=== PATIENT | female | born 1990 | race Caucasian/White ===

== ENCOUNTER 2023-01-10 22:53 | Observation (INO) | payer BC ==
[2023-01-11 00:13] LABS: BASO % 0.9 % (0-2.0); EOS % 1.9 % (0-4.5); HEMATOCRIT 38.8 % (32.4-45.2); HEMOGLOBIN 12.9 GM/dL (10.7-15.3); LYMPH % 10.1 % (8-40); MCHC 33.3 g/dl (32.0-36.0); MEAN PLT VOLUME 9.2 fl (7.5-11.1); MONO % 7.7 % (3.8-10.2); NEUT % 79.4 % (42.8-82.8); PLATELET COUNT 239 10^3/uL (134-434); RBC 4.31 M/mm3 (3.60-5.2); RDW 13.7 % (11.6-15.6); WHITE BLOOD COUNT 9.2 K/mm3 (4.0-10.0)
[2023-01-11 00:32] LABS: POTASSIUM 4.3 mmol/L (3.5-5.1)
[2023-01-11 00:34] LABS: ALBUMIN 3.6 g/dl (3.4-5.0); CALCIUM 8.7 mg/dL (8.5-10.1)
[2023-01-11 00:35] LABS: BLOOD UREA NITROGEN 19.4 mg/dL (7-18)
[2023-01-11 00:39] LABS: BILIRUBIN,TOTAL 0.2 mg/dL (0.2-1); TOT PROT 6.8 g/dl (6.4-8.2)
[2023-01-11 00:44] LABS: HCG,QUALITATIVE URINE Negative
[2023-01-11 00:45] LABS: EPI CELLS >36 /uL (0-25.1); HYALINE CASTS 1 /uL (0-3.1); URINE APPEARANCE CLEAR; URINE BACTERIA 54 /uL (0-1359); URINE BILIRUBIN NEGATIVE (NEGATIVE); URINE COLOR YELLOW; URINE GLUCOSE (UA) NEGATIVE (NEGATIVE); URINE KETONE TRACE (NEGATIVE); URINE LEUK ESTERASE NEGATIVE (NEGATIVE); URINE NITRITE NEGATIVE (NEGATIVE); URINE PROTEIN 1+ (NEGATIVE); URINE UROBILINOGEN 0.2 mg/dL (0.2-1.0); URINE WBC 23 /uL (0-25.8)
[2023-01-11 01:13] LABS: MAGNESIUM 1.9 mg/dL (1.8-2.4)
[2023-01-11 01:40] LABS: PHOSPHOROUS 2.7 mg/dL (2.5-4.9)
[2023-01-11] MEDS ORDERED: ASPIRIN 81 MG CHEWABLE TABLETS PO ONE (02:16)
[2023-01-11] MEDS ORDERED: ASPIRIN 81 MG CHEWABLE TABLETS ONE (02:21)
[2023-01-11 02:40] LABS: METHADONE, UR NEGATIVE (NEGATIVE)
[2023-01-11 02:41] LABS: PHENCYCLIDINE,URINE NEGATIVE (NEGATIVE); URINE BARBITURATES NEGATIVE (NEGATIVE); URINE BENZODIAZEPINES NEGATIVE (NEGATIVE)
[2023-01-11 02:44] LABS: COCAINE, UR NEGATIVE (NEGATIVE); OPIATES, URI NEGATIVE (NEGATIVE); URINE AMPHETAMINES NEGATIVE (NEGATIVE)
[2023-01-11 08:01] LABS: URINE CRYSTALS FEW /hpf
[2023-01-11] MEDS ORDERED: LORazepam 2 MG/ML SDV VIAL IVPUSH PRN (08:30)
[2023-01-11] MEDS ORDERED: ENOXAPARIN NA (PORCINE) 40 MG/0.4 ML DISP.SYRIN SQ ONE (08:41)
[2023-01-11 08:44] LABS: CHOLESTEROL 116 mg/dL (50-200)
[2023-01-11 08:46] LABS: LDL CHOLESTEROL (ONLY SJRH) 55 mg/dL (5-100)
[2023-01-11 08:47] LABS: HDL CHOLESTEROL 54 mg/dL (40-60)
[2023-01-11] MEDS: ASPIRIN 81 MG CHEWABLE TABLETS PO SCH (10:00)
[2023-01-11] MEDS: ENOXAPARIN NA (PORCINE) 40 MG/0.4 ML DISP.SYRIN SQ SCH (10:05)
[2023-01-11 10:55] LABS: BASO % 0.9 % (0-2.0); EOS % 2.5 % (0-4.5); HEMATOCRIT 37.2 % (32.4-45.2); HEMOGLOBIN 12.4 GM/dL (10.7-15.3); LYMPH % 16.5 % (8-40); MCH 29.9 pg (25.7-33.7); MCHC 33.3 g/dl (32.0-36.0); MEAN CELL VOLUME 89.6 fl (80-96); MEAN PLT VOLUME 10.3 fl (7.5-11.1); MONO % 8.2 % (3.8-10.2); NEUT % 71.9 % (42.8-82.8); PLATELET COUNT 234 10^3/uL (134-434); RBC 4.15 M/mm3 (3.60-5.2); RDW 13.5 % (11.6-15.6); WHITE BLOOD COUNT 8.3 K/mm3 (4.0-10.0)
[2023-01-11 12:08] LABS: CHLORIDE 110 mmol/L (98-107); POTASSIUM 4.2 mmol/L (3.5-5.1); SODIUM 143 mmol/L (136-145)
[2023-01-11 12:11] LABS: ALBUMIN 3.4 g/dl (3.4-5.0); ANION GAP 6 MMOL/L (8-16); BLOOD UREA NITROGEN 19.6 mg/dL (7-18); CALCIUM 8.2 mg/dL (8.5-10.1); CO2 27 mmol/L (21-32); MAGNESIUM 1.9 mg/dL (1.8-2.4)
[2023-01-11 12:12] LABS: GLUCOSE,RANDOM 92 mg/dL (74-106)
[2023-01-11 12:14] LABS: SGPT/ALT 16 U/L (13-61)
[2023-01-11 12:15] LABS: CREATININE 0.7 mg/dL (0.55-1.3); SGOT/AST 12 U/L (15-37)
[2023-01-11 12:16] LABS: BILIRUBIN,TOTAL < 0.1 mg/dL (0.2-1); TOT PROT 6.4 g/dl (6.4-8.2)
[2023-01-11 12:17] LABS: ALK PHOS 48 U/L (45-117)
[2023-01-12 05:54] VITALS: RESP 18
[2023-01-12] MEDS: ASPIRIN 81 MG CHEWABLE TABLETS PO SCH (10:30)
[2023-01-12] MEDS: ENOXAPARIN NA (PORCINE) 40 MG/0.4 ML DISP.SYRIN SQ SCH (10:30)
[2023-01-12] MEDS ORDERED: LORazepam 2 MG/ML SDV VIAL IVPUSH PRN (11:19)
[2023-01-12 12:25] LABS: POTASSIUM 3.9 mmol/L (3.5-5.1)
[2023-01-12 12:27] LABS: CALCIUM 8.9 mg/dL (8.5-10.1)
[2023-01-12 12:28] LABS: BLOOD UREA NITROGEN 15.2 mg/dL (7-18)
[2023-01-12 12:31] LABS: CREATININE 0.8 mg/dL (0.55-1.3)
[2023-01-12 13:02] VITALS: BMI 33.5
[2023-01-13] MEDS ORDERED: ASPIRIN 81 MG CHEWABLE TABLETS PO SCH (10:00)
[2023-01-13] MEDS ORDERED: ENOXAPARIN NA (PORCINE) 40 MG/0.4 ML DISP.SYRIN SQ SCH (10:00)
[2023-01-13 11:02] VITALS: BP 119/70; PULSE 85; TEMP 98.7
== END 2023-01-13 17:01 | disposition home or self-care (01) ==
LOC: JER 22:53 → JERBED 01-11 02:36 → UNDOADMOB 01-11 02:36 → OBSVTOIN 01-11 04:56 → INTOOBSV 01-11 04:56 → JERBED 01-11 11:58 → J5S 01-12 08:33
PROVIDERS: ADMIT Internal Medicine; ATTEND Internal Medicine
DX: R77.8 Other specified abnormalities of plasma proteins (principal); F12.10 Cannabis abuse, uncomplicated; Z72.0 Tobacco use; G43.909 Migraine, unspecified, not intractable, without status migrainosus; E66.8 Other obesity; Z68.33 Body mass index [BMI] 33.0-33.9, adult
CPT/HCPCS: 36415; 70450-TC; 71045-TC-FY; 72125-TC; 80048; 80053; 80061; 80307; 81003; 82550; 82962; 83605; 83735; 84100; 84443; 84484; 84703; 85025; 87086; 93005; 93010; 93306-TC; 95816; 99285-25; G0378

== ENCOUNTER 2024-11-11 17:10 | Emergency (ER) | payer BC, OTHER ==
[2024-11-11 17:18] VITALS: BP 121/68; PULSE 67; RESP 19; TEMP 98.7; BMI 33.6
[2024-11-11] MEDS ORDERED: diazePAM 2 MG TABLET ONE (18:47)
[2024-11-11] MEDS: diazePAM 2 MG TABLET PO ONE (18:50)
== END 2024-11-11 19:31 | disposition home or self-care (01) ==
LOC: JER 17:10
DX: G47.00 Insomnia, unspecified (principal); F41.9 Anxiety disorder, unspecified; I49.8 Other specified cardiac arrhythmias
CPT/HCPCS: 93005; 93010; 99283-25